=== PATIENT | female | born 1990 | race Caucasian/White ===

== ENCOUNTER 2019-04-06 07:08 | Inpatient (IN) | payer OTHER ==
[2019-04-06] VITALS (34 sets, daily range): BP systolic 94–120; BP diastolic 44–80; PULSE 62–90; TEMP 97.3–98.6
[~2019-04-06] VITALS: Ht 157.5 cm; Wt 65.5 kg
--- NOTE | 2019-04-06 07:30 | NUR ---
Pt arrives on unit ambulatory with spouse of induction of labor. G1L0 at 38.2 weeks gestation for oliogohydramnios. Changed into clean gown. EFM and toco applied. VSS. Reports scant spotting after SVE in office 04/03/19. Denies LOF and regular ctx. States GFM. IV started in LW. Labs drawn. LR infusing. Admission assessment completed. Consents signed. Pt updated on POC. Safety reviewed. Bed locked in low postion. No questions or concerns at this time.
[2019-04-06] MEDS ORDERED: PRENATAL MVI (07:55)
[2019-04-06] MEDS ORDERED: CELEXA 20MG20 MG/TAB PO (07:55)
[2019-04-06 08:33] LABS: BASO % 0.4 % (0.0-2.0); EOS # 0.1 (0.0-0.7); GRAN % 73.9 % (42.2-75.2); HEMATOCRIT 37.8 % (37.0-47.0); HEMOGLOBIN 12.8 g/dl (12.5-16.0); LYMPH # 1.7 (1.2-3.4); LYMPH % 16.1 % (20.0-51.0); MEAN CELL VOLUME 90 fl (80.0-100.0); MEAN CORPUSCULAR HEMOGLOBIN 30 pg (27.0-31.0); MEAN CORPUSCULAR HGB CONC 34 g/dl (33.0-37.0); MEAN PLATELET VOLUME 11.1 fl (7.4-10.4); MONO # 0.9 (0.1-0.6); MONO % 8.3 % (1.7-9.3); PLATELET COUNT 206 K/mm3 (130-400); RED BLOOD COUNT 4.21 M/mm3 (4.10-5.30); REDCELL DISTRIBUTION WIDTH-CV 12.1 % (11.5-14.5)
--- NOTE | 2019-04-06 10:40 | NUR ---
Difficulty tracing FHR due to maternal position. RN at bedside adjusting monitors. FHR audible.
[2019-04-07 04:15] VITALS: BP 103/69; PULSE 73; TEMP 97.7
[2019-04-07 08:20] VITALS: BP 104/61; PULSE 81; TEMP 97.7
[2019-04-07 12:20] VITALS: BP 109/75; PULSE 69; TEMP 97.8
[2019-04-07] MEDS ORDERED: IBU600 MG PO (12:33)
[2019-04-07 17:49] VITALS: BP 111/71; PULSE 68; TEMP 97.6
[2019-04-07 20:50] VITALS: BP 105/68; PULSE 72; TEMP 97.8
[2019-04-08 07:50] VITALS: BP 101/71; PULSE 77; TEMP 97.5
[2019-04-08 09:15] VITALS: BP 116/65; PULSE 66; TEMP 97.6
== END 2019-04-08 12:00 | disposition home or self-care (01) | DRG 807 ==
LOC: LDR 07:08 → OB 18:00
PROVIDERS: ADMIT Obstetrics & Gynecology
PROC: 10E0XZZ Delivery of Products of Conception, External Approach (ICD-10-PCS; principal; 2019-04-06)
PROC: 0HQ9XZZ Repair Perineum Skin, External Approach (ICD-10-PCS; 2019-04-06)
DX: O41.03X0 Oligohydramnios, third trimester, not applicable or unspecified (principal); Z37.0 Single live birth; O70.9 Perineal laceration during delivery, unspecified; O99.343 Other mental disorders complicating pregnancy, third trimester; F32.9 Major depressive disorder, single episode, unspecified; Z3A.38 38 weeks gestation of pregnancy
CPT/HCPCS: J1200; J2405; J2590; J7120

== ENCOUNTER → 2019-04-10 | Outpatient (CLI) | payer OTHER ==
[~2019-04-10] MED LIST: CELEXA 20MG20 MG/TAB PO; IBU600 MG PO; PRENATAL MVI
--- NOTE | 2019-04-10 18:18 | NUR ---
Pt, Malini Maciel, presents to walk-in clinic with three day old baby girl, Lucy Maciel. Her spouse is also present. Lucy was sent to [facility] for repeat bilirubin after being seen by Dr. Tena this morning. From there they were referred to BF clinic as baby not nursing well and pt is engorged. Lucy was born by on [birth year] and weighed 5#13.7oz (2655 gms). Discharge was on 04/08/19 and her weight was 5#5.9oz (2435 gms), 8% below weight. Today Lucy weighs 5#3.2oz (2360 gms), an 11% loss from . Pt states she has not been able to get Lucy latched well at home after milk came in, she has pumped x1 and provided about 20ml EBM by bottle earlier this morning. Pt is highly engorged, she is instructed on manual expression of milk to aid in latching, however Lucy does not latch for long, getting tired and sleeping. Nipple shield attempted without success. Bilirubin noted to abdomen, pt states Lucy has not stooled in 1.5 days, the last one was still meconium. They report 5-6 voids in since discharge from hospital. Because of difficult latching, engorgement and sleepiness of infant, pt is provided and instructed on breastpumping. She collects about 20ml. Latch is again attempted, she is on briefly but gets sleepy. Total weight gain from is 4gms. She is bottle fed the 20ml EBM collected and pt is advised to continue pumping while POC reviewed. She collects about 15 ml, to be fed at next feeding. POC: Pt advised to offer breast q 2-3 hours, 10 minutes maximum attempt. Supplement 1-2oz EBM or formula after each BF attempt. Pump bilaterally, save milk for supplement. Pt also advised on expected output, management of engorgement, and basics. LC instructs pt to monitor progression of jaundice and contact physician if extends to lower abdomen. Today's bilirubin reported by staff nurse to be in high-intermediate level. No orders received for repeat labs tomorrow. F/U: Lucy is to be seen by Dr. Tena in 3 days. Advised to follow up with this LC at clinic next week, or by appt. to evaluate infant's milk transfer once engorgement is resolved. Pt verbalizes understanding, handouts provided, questions invited and answered.
== END ==
LOC: LAC 11:49
DX: Z39.1 Encounter for care and examination of lactating mother (principal); Z71.89 Other specified counseling

== ENCOUNTER → 2021-06-02 | Outpatient (CLI) | payer BC ==
[2021-06-02 13:57] LABS: BASO # 0.1 (0.0-0.2); EOS # 0.1 (0.0-0.7); GRAN # 3.6 (1.4-6.5); GRAN % 50.5 % (42.2-75.2); HEMATOCRIT 41.3 % (37.0-47.0); HEMOGLOBIN 13.8 g/dl (12.5-16.0); LYMPH # 2.7 (1.2-3.4); LYMPH % 37.8 % (20.0-51.0); MEAN CELL VOLUME 88 fl (80.0-100.0); MEAN CORPUSCULAR HEMOGLOBIN 29 pg (27.0-31.0); MEAN CORPUSCULAR HGB CONC 33 g/dl (33.0-37.0); MEAN PLATELET VOLUME 9.7 fl (7.4-10.4); MONO # 0.6 (0.1-0.6); MONO % 8.4 % (1.7-9.3); PLATELET COUNT 231 K/mm3 (130-400); RED BLOOD COUNT 4.69 M/mm3 (4.10-5.30); REDCELL DISTRIBUTION WIDTH-CV 11.8 % (11.5-14.5)
[2021-06-02 14:12] LABS: ALBUMIN 4.5 gm/dL (3.5-5.0); BILIRUBIN,TOTAL 0.3 mg/dL (0.0-1.0); CALCIUM 9.3 mg/dL (8.4-10.2); CREATININE, serum 0.6 (0.52-1.25); TOTAL PROTEIN 7.6 gm/dL (6.4-8.2)
== END ==
LOC: COL.LAB 12:49
PROVIDERS: Physician Assistant
DX: R10.31 Right lower quadrant pain (principal)

== ENCOUNTER 2024-04-30 21:38 | Outpatient (CLI) | payer OTHER ==
[~2024-04-30] VITALS: Ht 154.9 cm; Wt 63.2 kg
--- NOTE | 2024-04-30 21:45 | NUR ---
G2L1 at 38 weeks and 4 days arrives to unit with complaint of contractions. Pt states contractions have been about 5 minutes apart for 2 hours and is GBS +. Pt reports good movement, denies bleeding or LOF. Clean gown on. Oriented to room, call light within reach, bed in low and locked position. US and toco explained and applied. Vitals obtained. Asssessment started. SVE 2/50/-2, membranes intact, head as presenting part.
[2024-04-30 22:00] VITALS: BP 111/54; PULSE 71; TEMP 98.2
[2024-04-30] MEDS ORDERED: LR 1,000 ML IV PRN (22:15)
--- NOTE | 2024-04-30 22:15 | NUR ---
Offered PO hydration, pt states she would prefer IV hydration so it will work faster. 18G IV started in right forearm at this time. Lactated ringers bolus infusing to gravity.
[2024-04-30 22:30] VITALS: BP 102/62; PULSE 62
--- NOTE | 2024-04-30 23:00 | NUR ---
Fluid bolus complete. Pt states contraction intensity and frequency has not changed since arrival to hospital. Pt does not appear to be in labor and unaware of some contractions on monitor. SVE unchanged /-
--- NOTE | 2024-04-30 23:23 | NUR ---
Pt agreeable to discharge plan. Reviewed instructions and return precautions, pt verbalized understanding. Pt seen ambulating off unit with spouse.
[2024-05-03] MEDS ORDERED: MOTRIN 800800 MG/TAB PO (11:04)
== END 2024-04-30 23:23 | disposition home or self-care (01) ==
LOC: LDRO 21:38
DX: O47.1 False labor at or after 37 completed weeks of gestation (principal); Z3A.38 38 weeks gestation of pregnancy
CPT/HCPCS: J7120